=== PATIENT | female | born 1990 | race Two or more races ===

== ENCOUNTER 2021-10-07 11:03 | Emergency (ER) | payer OTHER ==
[2021-10-07 11:18] VITALS: BMI 27.9
[2021-10-07] MEDS ORDERED: METOCLOPRAMIDE HCL INJECTION 10 MG/2 ML VIAL IVPUSH STA (11:36)
[2021-10-07] MEDS ORDERED: SODIUM CHLORIDE 1,000 ML IV ONE (11:36)
[2021-10-07] MEDS ORDERED: METHOCARBAMOL 500 MG TABLET PO ONE (11:37)
[2021-10-07] MEDS ORDERED: KETOROLAC TROMETHAMINE 30 MG/1 ML VIAL IVPUSH ONE (11:37)
[2021-10-07] MEDS ORDERED: MECLIZINE HCL 25 MG TABLET (FP) PO ONE (11:39)
[2021-10-07 12:09] LABS: BASO % 0.7 % (0-2.0); EOS % 3.3 % (0-4.5); HEMATOCRIT 38.5 % (32.4-45.2); HEMOGLOBIN 12.7 GM/dL (10.7-15.3); LYMPH % 27.3 % (8-40); MCH 28.5 pg (25.7-33.7); MCHC 32.9 g/dl (32.0-36.0); MEAN CELL VOLUME 86.6 fl (80-96); MEAN PLT VOLUME 8.7 fl (7.5-11.1); MONO % 8.7 % (3.8-10.2); PLATELET COUNT 265 10^3/uL (134-434); RBC 4.44 M/mm3 (3.60-5.2); RDW 14.7 % (11.6-15.6); WHITE BLOOD COUNT 5.6 K/mm3 (4.0-10.0)
[2021-10-07] MEDS ORDERED: MECLIZINE HCL 25 MG TABLET (FP) ONE (12:11)
[2021-10-07] MEDS ORDERED: METOCLOPRAMIDE HCL INJECTION 10 MG/2 ML VIAL ONE (12:11)
[2021-10-07] MEDS ORDERED: METHOCARBAMOL 500 MG TABLET ONE (12:11)
[2021-10-07] MEDS ORDERED: KETOROLAC TROMETHAMINE 30 MG/1 ML VIAL ONE (12:11)
[2021-10-07 12:16] LABS: INR 1.07 (0.83-1.09); PROTHROMBIN TIME (PATIENT) 12.3 SEC (9.7-13.0)
[2021-10-07 12:19] LABS: ACTIVATED PTT 29.3 SECONDS (25.2-36.5)
[2021-10-07 12:34] LABS: ALBUMIN 3.6 g/dl (3.4-5.0); BLOOD UREA NITROGEN 10.3 mg/dL (7-18)
[2021-10-07 12:35] LABS: MAGNESIUM 2.2 mg/dL (1.8-2.4)
[2021-10-07 12:37] LABS: CREATININE 0.7 mg/dL (0.55-1.3)
[2021-10-07 12:39] LABS: BILIRUBIN,TOTAL 0.3 mg/dL (0.2-1); TOT PROT 7.3 g/dl (6.4-8.2)
[2021-10-07 14:01] VITALS: BP 135/86; PULSE 72; TEMP 98
== END 2021-10-07 14:01 | disposition home or self-care (01) ==
LOC: JER 11:03
PROC: 3E033GC Introduction of Other Therapeutic Substance into Peripheral Vein, Percutaneous Approach (ICD-10-PCS; principal; 2021-10-07)
DX: R42 Dizziness and giddiness (principal)
CPT/HCPCS: 36415; 70450-TC; 71046-TC-FY; 80053; 83735; 84703; 85025; 85610; 85730; 93005; 93010; 99285-25